=== PATIENT | female | born 1995 | race Caucasian/White ===

== ENCOUNTER 2021-05-31 17:32 | Emergency (ER) | payer OTHER, BC, SELFPAY ==
--- NOTE | ~2021-05-31 | XR_ITS ---
XR heel RT min 2V DATE: 05/31/2021 18:17 INDICATION: Plantar heel pain after running TECHNIQUE: Axial and lateral views COMPARISON: None FINDINGS: No fracture, dislocation, bone destruction or enthesopathy. IMPRESSION: Negative Reviewed, dictated and finalized at location A. IMPRESSION: Negative
[2021-05-31 17:40] VITALS: BP 147/79; PULSE 84; RESP 20; TEMP 36.7; O2SAT 100
--- NOTE | 2021-05-31 18:16 | ED.LOWEXIN ---
HPI - Extremity Injury (Lower) General Chief Complaint: Extremity Injury, Lower Stated Complaint: right heel pain Time Seen by Provider: 05/31/21 17:52 Source: patient and RN notes reviewed Mode of arrival: ambulatory Limitations: no limitations History of Present Illness HPI Narrative: Patient presents today complaining of injury to the right foot. She was playing kickball last night and running the bases when she felt an instant sharp pain to the plantar aspect of her foot. Pain was significantly worse when she woke up this morning at 5 AM. She has been taking Tylenol and ibuprofen without relief. Pain increases with weightbearing she currently rates her pain /10. MD complaint: foot injury Related Data Home Medications Medication Instructions Recorded Confirmed escitalopram oxalate 10 mg PO DAILY 05/31/21 05/31/21 Allergies Allergy/AdvReac Type Severity Reaction Status Date / Time No Known Allergies Allergy Verified 05/31/21 18:01 Review of Systems Review of Systems: CONSTITUTIONAL: Denies body aches, fever, chills, or sweats. EYES: Denies visual changes, redness, or discharge. ENT: Denies rhinorrhea, congestion, sore throat, or otalgia. CARDIOVASCULAR: Denies chest pain, palpitations, or edema. RESPIRATORY: Denies cough or dyspnea. GASTROINTESTINAL: Denies abdominal pain, nausea, vomiting, or diarrhea. GENITOURINARY: Denies dysuria or hematuria. SKIN: Denies rash, itching, or wounds. MUSCULOSKELETAL: Denies back pain, or myalgia. + Right foot pain NEUROLOGIC: Denies headache, numbness, tingling, or weakness. PSYCH: Denies depression or anxiety. PMFSH Comments At time of signature, I have reviewed and agree with nursing past medical, surgical, social and family history unless otherwise noted. Please see nursing chart for further information. There is no relevant family history pertinent to the presenting complaint Exam Narrative: GENERAL: Well-appearing, well-nourished, and in no acute distress. HEAD: Normocephalic, atraumatic. EYES: EOMI. No redness or drainage. Conjunctivae normal. ENT: Mucous membranes pink and moist. NECK: Normal AROM. CHEST: No respiratory distress. EXTREMITIES: Right foot: Tenderness to the proximal plantar fascia overlying the heel. Distal sensation intact. Capillary refill normal. Pedal pulse normal. Range of motion of the foot increases pain to the plantar aspect of the foot. No ecchymosis, erythema, or edema noted. SKIN: Warm, dry, no rash. Capillary refill normal. Normal skin turgor. NEURO: No focal deficits. Alert and oriented x3. Gait steady. PSYCH: Normal affect. No signs of depression or anxiety. Course Vital Signs Vital signs: Vital Signs Temperature 98.0 F 05/31/21 17:40 Pulse Rate 84 05/31/21 17:40 Respiratory Rate 20 05/31/21 17:40 Blood Pressure 147/79 H 05/31/21 17:40 Pulse Oximetry 100 05/31/21 17:40 Temperature 98.0 F 05/31/21 17:40 Pulse Rate 84 05/31/21 17:40 Respiratory Rate 20 05/31/21 17:40 Blood Pressure 147/79 H 05/31/21 17:40 Pulse Oximetry 100 05/31/21 17:40 Reviewed. Pt has been instructed to follow up with her PCP regarding her elevated blood pressure today. MDM - Extremity Injury (Lower) Differential Diagnosis Differential diagnosis: Likely other (Foot sprain, foot fracture) Imaging Data Radiologist's impression: ITS Impressions Heel X-Ray 05/31/21 18:23 IMPRESSION: Negative Critical Care Time Critical Care Time Critical Care Time: No Discharge Plan Discharge Clinical Impression: Right foot sprain Qualifiers: Encounter type: initial encounter Qualified Code(s): S93.601A - Unspecified sprain of right foot, initial encounter Patient Disposition: Home, Self-Care Condition: Stable Instructions: Antibiotic Form Additional Instructions: Your x-ray is negative for fracture today. Elevate and ice the foot. Continue Tylenol or ibuprofen for pain. Follow-up wi
--- NOTE | 2021-06-01 10:27 | PC.NURSE ---
PT DECLINED WHEELCHAIR TO RADIOLOGY
== END 2021-05-31 18:30 | disposition home or self-care (01) ==
PROVIDERS: Emergency Provider Nurse Practitioner; PCP Family Medicine
DX: S93.601A Unspecified sprain of right foot, initial encounter (principal); X50.9XXA Other and unspecified overexertion or strenuous movements or postures, initial encounter; Y93.69 Activity, other involving other sports and athletics played as a team or group
CPT/HCPCS: 73650; 99213; G0463

== ENCOUNTER → 2021-12-11 15:54 | Outpatient (CLI) | payer OTHER, BC, SELFPAY ==
--- NOTE | ~2021-12-11 | US_ITS ---
EXAMINATION: US transvaginal DATE: 12/11/2021 16:22 INDICATION: Displacement of the intrauterine device. TECHNIQUE: Multiple transvaginal sonographic images of the pelvis were obtained. COMPARISON: None. FINDINGS: The uterus measures 7.3 x 4.0 x 4.2 cm. There is no free fluid in the pelvis. The endometrial complex measures 8 mm in thickness. There is an intrauterine device in expected position. The right ovary me asures 3.1 x 2.8 x 3.3 cm. The left ovary measures 3.6 x 2.2 x 2.9 cm. There is normal vascular flow in the ovaries. IMPRESSION: 1. Intrauterine device in expected position. Reviewed, dictated and finalized at location A.
== END ==
PROVIDERS: Visit Provider Nurse Practitioner
DX: T83.32XA Displacement of intrauterine contraceptive device, initial encounter (principal)
CPT/HCPCS: 76830

== ENCOUNTER 2023-03-24 09:28 | Emergency (ER) | payer OTHER, SELFPAY ==
[2023-03-24 09:38] VITALS: BP 140/83; PULSE 109; RESP 20; TEMP 36.4; O2SAT 100
--- NOTE | 2023-03-24 09:41 | ED.URI ---
HPI - URI/Sore Throat General Chief Complaint: Upper Respiratory Infection Stated Complaint: throat pain Source: patient and RN notes reviewed History of Present Illness HPI Narrative: 27 yo F presents to urgent care with complaints of a sore throat since Thursday. Pt states both of her ears hurt and she has a slight cough as well. Pt denies any fevers, chills, chest pain, SOB, congestion, vomiting, or diarrhea. Pt has been taking 650 mg of Tylenol at home for minimal relief. Pt is approximately 30 weeks . Related Data Home Medications Medication Instructions Recorded Confirmed escitalopram oxalate 10 mg tablet 10 mg PO DAILY 05/31/21 03/24/23 Allergies Allergy/AdvReac Type Severity Reaction Status Date / Time No Known Allergies Allergy Verified 03/24/23 09:42 Review of Systems Review of Systems: CONSTITUTIONAL: Denies fever, chills, or sweats. EYES: Denies visual changes, redness, or discharge. ENT: sore throat CARDIOVASCULAR: Denies chest pain, palpitations, or edema. RESPIRATORY: Denies cough or dyspnea. GASTROINTESTINAL: Denies abdominal pain, nausea, vomiting, or diarrhea. GENITOURINARY: Denies dysuria or hematuria. SKIN: Denies rash or itching. MUSCULOSKELETAL: Denies back pain, joint pain, or myalgia. NEUROLOGIC: Denies headache, numbness, or weakness. Pertinent positives per HPI. PMFSH Comments At the time of my signature, I reviewed and agree with the nursing past medical, surgical, social, and family history. There is no relevant family history pertinent to the patient complaint. Exam Narrative: GENERAL: This is a well-nourished, well-developed patient, in no apparent distress. HEAD: normocephalic, atraumatic. EYES: Sclera clear/white. Vision is grossly intact. EARS: External ears normal, auditory canals clear and without drainage, TMs normal without perforation. Hearing grossly intact. NOSE: External nose normal with no obvious nasal discharge, nares without redness, no rhinorrhea. THROAT: Mucous membranes moist, posterior pharynx clear. Tonsils are 2+ bilaterally. NECK: Neck supple, non-tender without lymphadenopathy, masses or thyromegaly. CARDIOVASCULAR: Regular rate and rhythm without murmurs, gallops, or rubs. RESPIRATORY: Clear to auscultation. Breath sounds equal bilaterally. No wheezes, rales, or rhonchi. SKIN: warm, intact with no suspicious lesions or rash, good texture and turgor. NEURO: awake, alert, and oriented to person, place and time. There were no obvious focal neurologic abnormalities. Course Course Level of Care: Express Care Visit Vital Signs Vital signs: Vital Signs Temperature 97.6 F 03/24/23 09:38 Pulse Rate 109 H 03/24/23 09:38 Respiratory Rate 20 03/24/23 09:38 Blood Pressure 140/83 03/24/23 09:38 Pulse Oximetry 100 03/24/23 09:38 Oxygen Delivery Room Air 03/24/23 09:38 Temperature 97.6 F 03/24/23 09:38 Pulse Rate 109 H 03/24/23 09:38 Respiratory Rate 20 03/24/23 09:38 Blood Pressure 140/83 03/24/23 09:38 Pulse Oximetry 100 03/24/23 09:38 Oxygen Delivery Room Air 03/24/23 09:38 Reviewed MDM - URI/Sore Throat MDM Narrative Medical decision making narrative: Rapid strep is negative in the office; however we will send to the lab for confirmation; there is a small percentage chance that it can come back positive; if it is, we will call you in 2-3days; and your prescription will be call in to your pharmacy. However, there is NO indication for antibiotic at this time. -Increase your fluids and Vitamin C. -Oral rinses such as: Salt water gargles and/or may use topical anesthetic (eg. Chloraseptic spray) or lozenges to relieve dryness or throat pain. -Take tylenol as needed for pain and fever as directed. -Frequent hand washing or hand auto clutch rebuilder is one of the best ways to prevent spread of infection. -Follow up with primary care provider in 2-3 days if condition is not improving or seek ER visit if your c
== END 2023-03-24 09:59 | disposition home or self-care (01) ==
PROVIDERS: Emergency Provider Nurse Practitioner Family; PCP Internal Medicine
DX: J02.9 Acute pharyngitis, unspecified (principal)
CPT/HCPCS: 87081; 87880; 99213; G0463

== ENCOUNTER 2023-05-19 17:05 | Inpatient (IN) | payer OTHER, SELFPAY ==
[2023-05-19] VITALS (13 sets, daily range): BP systolic 128–152; BP diastolic 71–97; PULSE 80–97; BMI 47.2
--- NOTE | 2023-05-19 16:14 | PM.OBTRLD ---
OB - Triage/Final Diagnosis Visit Information Date of evaluation: 05/19/23 Reason for evaluation: other (Hypertension) Comments/Additional reasons for admission: I have assessed the risk for this patient, Kim Mendez, and determined that she would benefit from observation care.
[2023-05-19 16:38] LABS: Basophils Percent Auto 0.2 % (0.2-1.2); Eosinophils Absolute Auto 0.1 K/mm3 (0-0.3); Eosinophils Percent Auto 0.4 % (0-4.4); Hemoglobin 11.8 g/dL (12.0-15.0); Immature Granulocyte Absolute 0.07 K/mm3 (0.00-0.031); Immature Granulocyte Percent A 0.6 % (0-0.5); Lymphocytes Absolute Auto 2.94 K/mm3 (0.9-3.2); Lymphocytes Percent Auto 24.1 % (18.3-44.2); Mean Corpuscular HGB Conc 32.8 g/dl (32-36); Mean Corpuscular Hemoglobin 28.8 pg (26-34); Mean Corpuscular Volume 87.8 fl (80-100); Mean Platelet Volume 10.1 fl (7.4-10.4); Monocytes Percent Auto 7.8 % (2.6-8.5); Neutrophils Absolute Auto 8.2 K/mm3 (1.3-6.7); Neutrophils Percent Auto 66.9 % (45.5-73.1); Platelet Count Result 288 k/mm3 (150-375); Red Cell Distribution Width 13.6 % (11.5-14.5); White Blood Count 12.2 K/mm3 (4.5-10.0)
[2023-05-19 16:49] LABS: Alanine Aminotransferase 18 U/L (6-35); Albumin Level 3.7 g/dL (3.5-5.1); Alkaline Phosphatase 128 U/L (38-126); Anion Gap 10 mmol/L (8-16); Aspartate Amino Transferase 22 U/L (14-36); Bilirubin,Total 0.1 mg/dL (0.2-1.3); Blood Urea Nitrogen 9 mg/dL (7-17); Calcium 8.6 mg/dL (8.4-10.2); Carbon Dioxide 18 mmol/L (22-30); Chloride 107 mmol/L (98-107); Estimated Glomerular Filt Rate > 60; Glucose 94 mg/dL (65-110); Potassium 4.1 mmol/L (3.4-5.0); Sodium 135 mmol/L (137-145); Uric Acid 3.3 mg/dL (2.5-7.5)
[2023-05-19 16:55] LABS: Creatinine Urine 33.3 mg/dL; Total Protein Urine Random 15 mg/dL; Ur Ttl Prot Creatinine Ratio 0.45 mg/mg (0-0.20)
[2023-05-19 16:56] LABS: Appearance Urine Cloudy (Clear); Bacteria Urine 2+ /hpf; Bilirubin Urine Negative (Negative); Blood Urine Negative (Negative); Color Urine Yellow (Yellow); Glucose Urine UA Negative (Negative); Ketones Urine Negative (Negative); Leukocyte Esterase Ur 3+ LEU/UL (NEGATIVE); Need Manual Microscopic Reviewed; Nitrate Urine Negative (Negative); Protein Urine Negative (Negative); RBC Urine 0-2 /hpf (0-2); Specific Grav Ur 1.007 (1.001-1.035); Squamous Epithelial Cell Urine Moderate /hpf (Few); Urobilinogen Urine 0.2 mg/dL (<2.0); WBC Urine 21-50 /hpf (0-3)
[2023-05-19 16:59] LABS: Add Urine Microscopic? YES
--- NOTE | 2023-05-19 17:05 | PC.NURSE ---
Called Dr. Yazan Mckeon with lab results and BPs. Informed of decelerations noted on tracing, and nonreactive tracing. Orders received to begin Cervidil induction.
[2023-05-19] MEDS: DINOPROSTONE 10 MG VAG INSERT VAGINAL (19:22)
[2023-05-20] VITALS (165 sets, daily range): BP systolic 94–157; BP diastolic 56–97; PULSE 74–125; RESP 16; TEMP 36.4–37.2; O2SAT 96–100
[2023-05-20] MEDS: OXYTOCIN 30 UNITS/NS 500 ML 30 UNITS/500 ML BAG 6 UNITS IV CONT (05:59)
[2023-05-20] MEDS: LACTATED RINGERS 1,000 ML 125 ML IV CONT ×3 (05:59→18:18)
[2023-05-20] MEDS: AMPICILLIN 2 GM/NS 100 ML 2 GM/100 ML BAG IVPB (06:02)
--- NOTE | 2023-05-20 06:05 | PM.IMHP ---
H&P: HPI History of Present Illness Date/Time: 05/20/23 06:05 Chief Complaint: elevated blood pressure at term Narrative: this is a 27-year-old 1 para 0 whose last menstrual period was 08/21/2022, EDC is 06/03/2023, presents at 37 half weeks gestation for induction of labor secondary to elevated blood pressures. The her pH labs were normal but her blood pressures have been elevated. She is positive for group B strep and will be prophylaxed. Cervidil was placed last night and the cervix is a cm this morning [facility] Social History Social History Smoking status: Never smoker Second hand tobacco smoke exposure: No Substance use: never Lack of Transportation: No Lack of Food: Never True Current Housing: I Have Housing Concerned About Future Housing: No Difficulty Paying Gas/Electric Bills: No Difficulty Paying for Meds: No Currently Unemployed: No Education: Bachelor's Degree Difficulty w/ Childcare or Family Care: No Spiritual care concerns: No Meds Home Medications and Allergies Home Medications Medication Instructions Recorded Confirmed Type escitalopram oxalate 10 mg tablet 10 mg PO DAILY 05/31/21 05/09/23 History ondansetron HCl 4 mg tablet 4 mg PO DAILY 05/09/23 05/09/23 History vit#24-iron amino acid 1 tablet PO DAILY 05/09/23 05/09/23 History chelat-folic acid 30 mg-975 mcg tablet Allergies Allergy/AdvReac Type Severity Reaction Status Date / Time No Known Allergies Allergy Verified 05/09/23 15:26 Vital Signs Vital Signs - 24 hr 05/19/23 16:25 05/19/23 16:31 05/19/23 16:46 Temperature Pulse Rate 94 83 82 Blood Pressure 151/97 H 144/81 H 152/92 H Oxygen Delivery 05/19/23 17:01 05/19/23 17:16 05/19/23 17:31 Temperature Pulse Rate 80 92 87 Blood Pressure 138/81 146/95 H 141/89 H Oxygen Delivery 05/19/23 17:46 05/19/23 18:01 05/19/23 18:16 Temperature Pulse Rate 90 90 89 Blood Pressure 145/77 H 138/87 148/81 H Oxygen Delivery 05/19/23 19:28 05/19/23 20:01 05/19/23 20:31 Temperature Pulse Rate 97 97 86 Blood Pressure 140/78 139/87 128/75 Oxygen Delivery 05/19/23 21:01 05/20/23 02:31 05/20/23 02:00 Temperature 98.7 F Pulse Rate 90 74 Blood Pressure 128/71 120/56 L Oxygen Delivery 05/20/23 05:46 05/20/23 05:47 05/20/23 06:01 Temperature Pulse Rate 89 98 91 Blood Pressure 133/84 129/83 132/80 Oxygen Delivery 05/19/23 19:02 Temperature Pulse Rate Blood Pressure Oxygen Delivery Room Air Exam Const: General: cooperative, healthy appearing, comfortable and overweight Orientation/consciousness: oriented to person, oriented to place and oriented to time HENMT: Head: normal to inspection Resp: Effort & Inspection: normal respiratory effort Cardio: Rate: regular rate Rhythm: regular rhythm Heart sounds: S1 normal heart sound present and S2 normal heart sound present GI: Inspection: normal to inspection ( gravid soft uterus) : Speculum Exam - Vagina: normal appearance of the vagina Speculum Exam - Cervix: normal appearance of the cervix ( /2. Attempted a ROM. FHTs reassuring) H&P: Results Labs Labs: Short CBC 05/19/23 Range/Units 16:24 WBC 12.2 H (4.5-10.0) K/mm3 Hgb 11.8 L (12.0-15.0) g/dL Hct 36.0 L (37.0-47.0) % Plt Count 288 (150-375) k/mm3 BMP 05/19/23 16:24 Sodium 135 L Potassium 4.1 Chloride 107 Carbon Dioxide 18 L BUN 9 Creatinine 0.50 L Glucose 94 Calcium 8.6 Liver Function 05/19/23 Range/Units 16:24 Total Bilirubin 0.1 L (0.2-1.3) mg/dL AST 22 (14-36) U/L ALT 18 (6-35) U/L Alkaline Phosphatase 128 H (38-126) U/L Albumin 3.7 (3.5-5.1) g/dL Urine 05/19/23 Range/Units 16:24 Urine Color Yellow (Yellow) Urine Appearance Cloudy H (Clear) Urine pH 7.0 (5.0-9.0) Ur Specific [place] 1.007 (1.0
[2023-05-20 09:44] LABS: Rapid Plasma Reagin Non-Reactive (NonReactive)
[2023-05-20] MEDS: AMPICILLIN 1 GM/NS 50 ML 1 GM/50 ML BAG IVPB ×4 (10:03→22:45)
--- NOTE | 2023-05-20 11:36 | PM.OBPNLAB ---
Pain Control Date/time seen: 05/20/23 11:36 Pain control: tolerating well Pelvic Exam Dilation (cm): 1 Effacement (%): 50 station: -2 Amniotic membrane status: Leaking
[2023-05-20] MEDS: ONDANSETRON INJ 4 MG/2 ML VIAL IV PUSH (12:35)
[2023-05-20] MEDS: fentaNYL CITRATE INJ (*CRX) 100 MCG/2 ML VIAL 50 MCG IV PUSH ×2 (13:51→14:54)
--- NOTE | 2023-05-20 16:17 | WPDANESEPPF ---
Anes - Initial Pre Proc Eval Procedure: labor epidural Date/Time: 05/20/23 16:17 Surgeon: Sreedhar Mckeon MD Pre Op Diagnosis: labor pain Pre Op Diagnosis: PIH Eval Patient Data Age: 27 Gender: F Height: 1.7 m Weight: 137 kg Last Vital Signs Temp 36.6 C 05/20/23 14:00 Pulse 91 05/20/23 16:10 BP 148/86 H 05/20/23 16:10 Pulse Ox 98 05/20/23 16:16 O2 Del Method Room Air 05/19/23 19:02 Allergies Allergy/AdvReac Type Severity Reaction Status Date / Time No Known Allergies Allergy Verified 05/09/23 15:26 Home Medications Medication Instructions Recorded Confirmed Type escitalopram oxalate 10 mg tablet 10 mg PO DAILY 05/31/21 05/09/23 History ondansetron HCl 4 mg tablet 4 mg PO DAILY 05/09/23 05/09/23 History vit#24-iron amino acid 1 tablet PO DAILY 05/09/23 05/09/23 History chelat-folic acid 30 mg-975 mcg tablet Laboratory Tests 05/19/23 05/19/23 16:24 18:55 WBC 12.2 H K/mm3 (4.5-10.0) RBC 4.10 L M/mm3 (4.2-5.4) Hgb 11.8 L g/dL (12.0-15.0) Hct 36.0 L % (37.0-47.0) MCV 87.8 fl (80-100) MCH 28.8 pg (26-34) MCHC 32.8 g/dl (32-36) RDW 13.6 % (11.5-14.5) Plt Count 288 k/mm3 (150-375) MPV 10.1 fl (7.4-10.4) Immature Gran % (Auto) 0.6 H % (0-0.5) Neut % (Auto) 66.9 % (45.5-73.1) Lymph % (Auto) 24.1 % (18.3-44.2) [place] % (Auto) 7.8 % (2.6-8.5) Eos % (Auto) 0.4 % (0-4.4) Baso % (Auto) 0.2 % (0.2-1.2) Lymph # (Auto) 2.94 K/mm3 (0.9-3.2) [place] # (Auto) 1.0 H K/mm3 (0.1-0.6) Eos # (Auto) 0.1 K/mm3 (0-0.3) Baso # (Auto) 0.0 K/mm3 (0.0-0.1) Abs Immat Gran (auto) 0.07 H K/mm3 (0.00-0.031) Absolute Neuts (auto) 8.2 H K/mm3 (1.3-6.7) Absolute Nucleated RBC 0.0 K/mm3 (0.0-0.012) Nucleated RBC % 0.0 % (0.0-0.2) Sodium 135 L mmol/L (137-145) Potassium 4.1 mmol/L (3.4-5.0) Chloride 107 mmol/L (98-107) Carbon Dioxide 18 L mmol/L (22-30) Anion Gap 10 mmol/L (8-16) BUN 9 mg/dL (7-17) Creatinine 0.50 L mg/dL (0.7-1.0) Estim Creat Clear Calc Not Reportable Estimated GFR > 60 (59 - ) Glucose 94 mg/dL (65-110) Uric Acid 3.3 mg/dL (2.5-7.5) Calcium 8.6 mg/dL (8.4-10.2) Total Bilirubin 0.1 L mg/dL (0.2-1.3) AST 22 U/L (14-36) ALT 18 U/L (6-35) Alkaline Phosphatase 128 H U/L (38-126) Total Protein 7.0 g/dL (6.3-8.2) Albumin 3.7 g/dL (3.5-5.1) Urine Color Yellow (Yellow) Urine Appearance Cloudy H (Clear) Urine pH 7.0 (5.0-9.0) Ur Specific [place] 1.007 (1.001-1.035) Urine Protein Negative mg/dL (Negative) Urine Glucose (UA) Negative mg/dL (Negative) Urine Ketones Negative mg/dL (Negative) Ur Blood (Man) Negative (Negative) Urine Nitrate Negative (Negative) Urine Bilirubin Negative (Negative) Urine Urobilinogen 0.2 mg/dL (<2.0) Ur Leukocyte Esterase 3+ H RALPH/UL (NEGATIVE) Add Ur Microanalysis Reviewed Urine RBC 0-2 /hpf (0-2) Urine WBC 21-50 /hpf (0-3) Ur Squamous Epith Cells Moderate /hpf (Few) Urine Bacteria 2+ H /hpf Urine Casts 6-10 U Random Total Protein 15 mg/dL Urine Creatinine 33.3 mg/dL Protein/Creat Ratio 2 0.45 H mg/mg (0-0.20) RPR Non-reactive (NonReactive) Blood Type O Positive Antibody Screen Negative Patient hx anesthesia problems: none Family hx anesthesia problems: none Results Review: All pre-operative results and documents have been reviewed as part of the pre-operative evaluation. [facility] Social History Social History
--- NOTE | 2023-05-20 16:33 | PM.OBPNLAB ---
Pain Control Date/time seen: 05/20/23 16:33 Pain control: tolerating well and epidural Pelvic Exam Dilation (cm): 2 Effacement (%): 50 station: -2 Amniotic membrane status: Leaking Contractions Monitor mode: Internal
[2023-05-21] VITALS (313 sets, daily range): BP systolic 92–158; BP diastolic 47–109; PULSE 25–144; RESP 13–25; TEMP 36.2–37.9; O2SAT 91–100
[2023-05-21] MEDS: AMPICILLIN 1 GM/NS 50 ML 1 GM/50 ML BAG IVPB ×4 (02:14→14:38)
[2023-05-21] MEDS: LACTATED RINGERS 1,000 ML 125 ML IV CONT ×2 (03:53→12:53)
[2023-05-21] MEDS: OXYTOCIN 30 UNITS/NS 500 ML 30 UNITS/500 ML BAG 6 UNITS IV CONT (03:53)
--- NOTE | 2023-05-21 07:05 | PM.OBPNLAB ---
Pain Control Date/time seen: 05/21/23 07:05 Pain control: tolerating well and epidural Pelvic Exam Dilation (cm): 2 Effacement (%): 50 station: -2 Amniotic membrane status: Leaking Contractions Monitor mode: Internal
--- NOTE | 2023-05-21 07:32 | PM.OBPNLAB ---
Pain Control Date/time seen: 05/21/23 07:32 Pain control: tolerating well and epidural Pelvic Exam Dilation (cm): 3 Effacement (%): 75 station: -2 Amniotic membrane status: Leaking Comments: iupc replaced Contractions Monitor mode: Internal
[2023-05-21] MEDS: ONDANSETRON INJ 4 MG/2 ML VIAL IV PUSH (10:35)
--- NOTE | 2023-05-21 12:46 | PM.OBPNLAB ---
Pain Control Date/time seen: 05/21/23 12:46 Pelvic Exam Dilation (cm): 5 Effacement (%): 75 station: -2 Amniotic membrane status: Leaking Contractions Monitor mode: Internal
[2023-05-21] MEDS: DEXTROSE 5%/LACTATED RINGERS 1,000 ML 125 ML IV CONT (14:01)
--- NOTE | 2023-05-21 16:07 | PM.OBPNLAB ---
Pain Control Date/time seen: 05/21/23 16:07 Pain control: tolerating well and epidural Pelvic Exam Dilation (cm): 6 Effacement (%): 75 station: -2 Amniotic membrane status: Leaking Comments: no change for hours. baby now w more variables, offered section, reviewed risks Contractions Monitor mode: Internal
[2023-05-21] MEDS: SODIUM CHLORIDE 0.9% IV 300 ML 600 ML I-UTERINE (16:14)
[2023-05-21] MEDS: AZITHROMYCIN 500 MG/NS 250 ML 500 MG/250 ML BAG 250 MG IVPB (16:52)
[2023-05-21] MEDS: ceFAZolin 3 GM/D5W 100 ML 100 ML IVPB (17:58)
--- NOTE | 2023-05-21 18:48 | P.OP_ITS ---
Procedure Note - Detailed Date of Procedure 05/21/23 Pre-op Diagnosis PIH Eval/Failure to progress Post-op Diagnosis Same Procedure Performed a primary low-transverse sec Surgeon Sreedhar Mckeon MD Anesthesia Epidural Indications cis 27-year-old 1 para 0 at37+ weeks gestation with gestational hypertension and failed to progress Findings male 6lb 3oz Description of Procedure patient was admitted for induction of labor after adequate contractions she had a 6-7 cm and could get no further. Baby began to have some variable late decelerations and decision was made for section. AfterObtaining informed consent the patient was taken back. The patient was prepped draped in normal sterile fashion placed in the supine position. Under excellent epidural anesthesia the abdomen is entered in Pfannenstiel fashion progressive layers to fascia. Fascia incised midline care number not fashion bilaterally. Underlying muscles sharply dissected. Parietal perineum awakened clamps and by sharp dissection carried superiorly and inferiorly DeLee bladder. Bladder blade placed. Bladder flap formed. Bladder blade returned and low-transverse incision made. The head delivered in the JEAN position. Anterior posterior shoulder delivered spontaneously. Cord clamped and cut and passed off the table. Placenta delivered intact manually. Uterus delivered on the abdomen wrapped in a moist towel. After assuring no membranes remained the uterus, the uterus was closed with continuous running 0 Vicryl from lateral edge to lateral edge followed by 2nd imbricating running locking 0 Vicryl from lateral edge to lateral edge. Hemostasis was assured. The ovaries and tubes appeared within normal limits knees returned to the abdomen. The laps removed and accounted for. The incision on the uterus inspected 1 last time to be hemostatic and sprinkled with the hematuria. The fascia was closed with continuous running 0 Vicryl from lateral edge to midline bilaterally. Irrig ation subcutaneous layer and skin closed with 4 Monocryl glue. Estimated Blood Loss 835 Drains No Packing No Pathology None sent Complications No immediate complications Condition Stable Disposition PACU
[2023-05-21] MEDS: OXYTOCIN 30 UNITS/NS 500 ML 30 UNITS/500 ML BAG 125 UNITS IV CONT (20:40)
[2023-05-22] MEDS: DEXTROSE 5%/0.45% SOD CHL 1,000 ML 125 ML IV CONT (00:25)
[2023-05-22 04:55] VITALS: BP 144/92; PULSE 85; RESP 16; TEMP 36.8; O2SAT 98
[2023-05-22 05:40] LABS: Basophils Absolute Auto 0.1 K/mm3 (0.0-0.1); Basophils Percent Auto 0.3 % (0.2-1.2); Eosinophils Percent Auto 0.2 % (0-4.4); Immature Granulocyte Absolute 0.11 K/mm3 (0.00-0.031); Immature Granulocyte Percent A 0.7 % (0-0.5); Lymphocytes Absolute Auto 2.31 K/mm3 (0.9-3.2); Lymphocytes Percent Auto 14.2 % (18.3-44.2); Mean Corpuscular HGB Conc 33.3 g/dl (32-36); Mean Corpuscular Hemoglobin 29.4 pg (26-34); Mean Corpuscular Volume 88.2 fl (80-100); Mean Platelet Volume 10.3 fl (7.4-10.4); Monocytes Absolute Auto 1.1 K/mm3 (0.1-0.6); Monocytes Percent Auto 6.7 % (2.6-8.5); Neutrophils Absolute Auto 12.7 K/mm3 (1.3-6.7); Neutrophils Percent Auto 77.9 % (45.5-73.1); Platelet Count Result 214 k/mm3 (150-375); Red Blood Count 3.74 M/mm3 (4.2-5.4); Red Cell Distribution Width 13.6 % (11.5-14.5); White Blood Count 16.3 K/mm3 (4.5-10.0)
--- NOTE | 2023-05-22 07:03 | PM.DS ---
DS: Admitting Diagnosis Discharge Date 05/23/2023 Admitting Diagnosis Gestational hypertension /term DS: Discharge Diagnosis Discharge Diagnosis (1) Group beta Strep positive: Code(s): B95.1 - Streptococcus, group B, as the cause of diseases classified elsewhere Status: Acute (2) Gestational hypertension: Code(s): O13.9 - Gestational [-induced] hypertension without significant proteinuria, unspecified trimester Status: Acute (3) Term : Code(s): Z34.90 - Encounter for supervision of normal , unspecified, unspecified trimester Status: Acute DS: Summary Hospital Course Reason for hospitalization: induction of labor at term for elevated blood pressures Hospital Course: patient underwent primary low-transverse section after failed induction. Her hospital course unremarkable. She remained afebrile. She was up, voiding without difficulty, eating regular diet, ambulating, and generally without complaints. Time Spent with Patient Time attestation: Total time spent providing and/or coordinating discharge services: DS: Data Data Completed and Pending Labs on day of discharge: Labs from last 24 hours 05/22/23 05:04 WBC 16.3 H RBC 3.74 L Hgb 11.0 L Hct 33.0 L MCV 88.2 MCH 29.4 MCHC 33.3 RDW 13.6 Plt Count 214 MPV 10.3 Immature Gran % (Auto) 0.7 H Neut % (Auto) 77.9 H Lymph % (Auto) 14.2 L [place] % (Auto) 6.7 Eos % (Auto) 0.2 Baso % (Auto) 0.3 Lymph # (Auto) 2.31 [place] # (Auto) 1.1 H Eos # (Auto) 0.0 Baso # (Auto) 0.1 Abs Immat Gran (auto) 0.11 H Absolute Neuts (auto) 12.7 H Absolute Nucleated RBC 0.0 Nucleated RBC % 0.0 Discharge Plan Discharge Attending physician on discharge: Sreedhar Tejada Discharging Clinician: Sreedhar Tejada Patient Disposition: Home, Self-Care Activity: may shower, no straining and pelvic rest Diet: heart healthy Wound Care Instructions: follow printed instructions Patient Instructions: Antibiotic Form Stand Alone Forms: General Discharge Information Follow-up/Referrals: Sreedhar Tejada MD [Physician] - Discharge Medications: New hydrocodone-acetaminophen 5-325 mg tablet 1 tablet PO Q4H PRN (Reason: pain) Qty: 30 0RF Continued escitalopram oxalate 10 mg tablet 10 mg PO DAILY ondansetron HCl 4 mg tablet 4 mg PO DAILY Complete 30-975 mg-mcg Tablet 1 tablet PO DAILY Date of admission: 05/19/23 17:05 Primary Care Provider: Prem Tabor Admitting Provider: Sreedhar Tejada Attending physician on admission: Sreedhar Tejada Condition: Stable
[2023-05-22 08:15] VITALS: BP 141/88; PULSE 86; RESP 18; TEMP 36.8; O2SAT 98
--- NOTE | 2023-05-22 08:15 | PM.OBPNVD ---
OB - PN: Subj Subjective Date/time seen: 05/22/23 08:15 Patient comments: no complaints and pain well controlled baby status: doing well OB - PN: Obj Data Labs 05/22/23 05:04 05/19/23 16:24 Labs: Laboratory Results - last 24 hr 05/22/23 05:04 WBC 16.3 H RBC 3.74 L Hgb 11.0 L Hct 33.0 L MCV 88.2 MCH 29.4 MCHC 33.3 RDW 13.6 Plt Count 214 MPV 10.3 Immature Gran % (Auto) 0.7 H Neut % (Auto) 77.9 H Lymph % (Auto) 14.2 L [place] % (Auto) 6.7 Eos % (Auto) 0.2 Baso % (Auto) 0.3 Lymph # (Auto) 2.31 [place] # (Auto) 1.1 H Eos # (Auto) 0.0 Baso # (Auto) 0.1 Abs Immat Gran (auto) 0.11 H Absolute Neuts (auto) 12.7 H Absolute Nucleated RBC 0.0 Nucleated RBC % 0.0 OB - PN A/P Plan day: 1 Plan: routine care Time Spent With Patient Time: Total time spent is greater than 50% in coordination of care (as documented) at patient's floor/unit and/or counseling patient: Time with patient: less than 15 minutes Exam Const: General: cooperative, healthy appearing and comfortable Orientation/consciousness: oriented to person, oriented to place and oriented to time HENMT: Head: normal to inspection Resp: Effort & Inspection: normal respiratory effort Cardio: Rate: regular rate Rhythm: regular rhythm Heart sounds: S1 normal heart sound present and S2 normal heart sound present GI: Inspection: normal to inspection and incision (Wound is clean dry and intact)
[2023-05-22] MEDS: HYDROcodone/acetaminophen (*CRX) 5-325 MG TABLET 1 TAB PO ×4 (08:23→20:37)
[2023-05-22] MEDS: SIMETHICONE 80 MG TAB.CHEW PO ×4 (08:23→20:37)
[2023-05-22] MEDS: DOCUSATE SODIUM 100 MG CAPSULE PO ×2 (08:23→16:38)
[2023-05-22] MEDS: MULTIVIT/MIN/PREN/FOL AC/IRON TABLET 1 TAB PO (08:23)
[2023-05-22] MEDS: IBUPROFEN 600 MG TABLET PO ×2 (08:23→16:39)
--- NOTE | 2023-05-22 08:55 | WPDANESPN ---
Anes - Prog Note Post-Op Date/Time: 05/22/23 08:55 Cardiovascular status: normal Respiratory status: normal Airway patency: baseline Mental status: baseline Post-Op hydration status: normal Vital Signs: Last Vital Signs Temp 36.8 C 05/22/23 04:55 Pulse 85 05/22/23 04:55 Resp 16 05/22/23 04:55 BP 144/92 H 05/22/23 04:55 Pulse Ox 98 05/22/23 04:55 O2 Del Method Room Air 05/21/23 22:26 Pain Score (VAS): 310 I/O: Intake & Output 05/21/23 05/22/23 05/22/23 23:59 07:59 15:59 Intake Total 100 Output Total 500 750 Balance -500 -650 Laboratory Tests 05/22/23 05:04 05/19/23 16:24 05/22/23 05:04 WBC 16.3 H RBC 3.74 L Hgb 11.0 L Hct 33.0 L MCV 88.2 MCH 29.4 MCHC 33.3 RDW 13.6 Plt Count 214 MPV 10.3 Immature Gran % (Auto) 0.7 H Neut % (Auto) 77.9 H Lymph % (Auto) 14.2 L [place] % (Auto) 6.7 Eos % (Auto) 0.2 Baso % (Auto) 0.3 Lymph # (Auto) 2.31 [place] # (Auto) 1.1 H Eos # (Auto) 0.0 Baso # (Auto) 0.1 Abs Immat Gran (auto) 0.11 H Absolute Neuts (auto) 12.7 H Absolute Nucleated RBC 0.0 Nucleated RBC % 0.0 Post-procedural complaints: none Patient Feedback: Patient satisfied with anesthetic care.
--- NOTE | 2023-05-22 11:45 | PC.NURSE ---
[id number] Introductions were made and Mother verbalizes she is able to independently latch with appropriate positioning/alignment. She denies any nipple discomfort and is responsively . Infant is currently meeting outcomes for weight, output, jaundice and feeding frequencies of 8-12 times in 24 hours. Reviewed education regarding stimulating breast 8-12 times feeding infant on demand about every 1-3 hours. We reviewed the risks and benefits of pumping and protecting the milk supply. Mother is encouraged to call for assistance if her doesn?t latch or there is discomfort with latching. Mother voiced understanding of information shared and the mom reminded of the mom/baby guide for an additional resource and name written on the communication board.
[2023-05-22 12:09] VITALS: BP 134/88; PULSE 96; RESP 18; TEMP 36.5; O2SAT 99
[2023-05-22 16:30] VITALS: BP 148/94; PULSE 106; RESP 18; TEMP 37.1; O2SAT 97
[2023-05-22 20:26] VITALS: BP 139/92; PULSE 84; RESP 18; TEMP 36.6; O2SAT 98
--- NOTE | 2023-05-23 07:06 | P.PNOB_ITS ---
OB - PN: Subj Subjective Date/time seen: 05/23/23 07:06 Patient comments: no complaints, pain well controlled and incisional pain [place] baby status: doing well and nursing well OB - PN: Obj Data Labs 05/22/23 05:04 05/19/23 16:24 OB - PN A/P Plan day: 2 Plan: routine care, discharge home and follow up 6 weeks (4) Time Spent With Patient Time: Total time spent is greater than 50% in coordination of care (as documented) at patient's floor/unit and/or counseling patient: Time with patient: less than 15 minutes Exam Const: General: cooperative, healthy appearing and comfortable Nutritional Appearance: average body habitus Orientation/consciousness: oriented to person, oriented to place and oriented to time HENMT: Head: normal to inspection Resp: Effort & Inspection: normal respiratory effort Cardio: Rate: regular rate Rhythm: regular rhythm Heart sounds: S1 normal heart sound present and S2 normal heart sound present GI: Inspection: normal to inspection and incision ( wound clean dry and intac t)
[2023-05-23 08:00] VITALS: BP 134/87; PULSE 87; RESP 16; TEMP 36.9; O2SAT 98
[2023-05-23] MEDS: MEASLES,MUMPS,RUBELLA VACCINE 0.5 ML VIAL SUB-Q (10:29)
[2023-05-23] MEDS: MULTIVIT/MIN/PREN/FOL AC/IRON TABLET 1 TAB PO (10:30)
[2023-05-23] MEDS: IBUPROFEN 600 MG TABLET PO (10:31)
[2023-05-23] MEDS: DOCUSATE SODIUM 100 MG CAPSULE PO (10:31)
[2023-05-23] MEDS: HYDROcodone/acetaminophen (*CRX) 5-325 MG TABLET 1 TAB PO (10:31)
--- NOTE | 2023-05-23 12:00 | PC.NURSE ---
Patient viewed the discharge video Mother & Baby Care, The First Two Weeks . Patient was given the opportunity and encouraged to ask questions. Patient verbalized understanding of information shared and has been given the mother/baby guide for home reference.
[2023-05-25 10:08] VITALS: BP 147/85; PULSE 84; RESP 16; TEMP 36.5; O2SAT 100
== END 2023-05-23 12:05 | disposition home or self-care (01) | DRG 788 ==
LOC: ANHOBOP 18:09 → ANHOBPP 18:09 → ANHLDR 20:20 → ANHOB2 05-21 23:38
PROVIDERS: Admitting Provider Obstetrics & Gynecology; PCP Internal Medicine; Visit Provider Obstetrics & Gynecology
PROC: 10D00Z1 Extraction of Products of Conception, Low, Open Approach (ICD-10-PCS; CPT 59514; principal; 2023-05-21 17:30)
DX: O99.824 Streptococcus B carrier state complicating childbirth (principal); O13.4 Gestational [pregnancy-induced] hypertension without significant proteinuria, complicating childbirth; O76 Abnormality in fetal heart rate and rhythm complicating labor and delivery; O62.0 Primary inadequate contractions; O77.0 Labor and delivery complicated by meconium in amniotic fluid; Z3A.37 37 weeks gestation of pregnancy; Z37.0 Single live birth
CPT/HCPCS: 36415; 80053; 81001; 82570; 84156; 84550; 85025; 86592; 86850; 86900; 86901; 87086; 87088; 90710; A9270; J0290; J0456; J0690; J2175; J2274; J2371; J2405; J2590; J2795; J3010; J7030; J7120; J7121